=== PATIENT | female | born 1990 | race Caucasian/White ===

== ENCOUNTER 2016-12-22 06:17 | Outpatient (CLI) | payer OTHER ==
[2016-12-22 06:41] LABS: APPEARANCE,URINE SLIGHTLY-CLOUDY; BILIRUBIN,URINE NEGATIVE (NEGATIVE); GLUCOSE, URINE NEGATIVE (NEGATIVE); KETONES,URINE NEGATIVE (NEGATIVE); LEUKOCYTE ESTERASE,URINE NEGATIVE (NEGATIVE); NITRITE,URINE NEGATIVE (NEGATIVE); PROTEIN,URINE NEGATIVE (NEGATIVE); URINE SPECIFIC GRAVITY 1.008; UROBILINOGEN,URINE NEGATIVE mg/dL (<2.0)
[2016-12-22 06:57] LABS: URINE BARBITURATES SCREEN NEGATIVE; URINE METHADONE SCREEN NEGATIVE; URINE OPIATES LOW NEGATIVE; URINE PHENCYCLIDINE SCREEN NEGATIVE
--- NOTE | 2016-12-22 08:00 | L&D Flow Sheet ---
LD Flowsheet Datetime Report Generated by CPN: 12/22/2016 08:00 Datetime: 12/22/2016 07:11 Communication Communication: RN at Bedside (Monalisa Calvert, RN) Communication Comments: Report given to A Lomas, RN . Care relinquished at this time. (Monalisa Calvert, RN) Datetime: 12/22/2016 07:05 NBP Sys/Jasmin/Mean (mmHg): 127 (QS system process) : 96 (QS system process) : 107 (QS system process) Pulse: 106 (QS system process) LaborFlag: Antepartum (QS system process) Datetime: 12/22/2016 07:00 Vital Signs Stage of : Antepartum (Monalisa Calvert, RN) Uterine Activity Monitor Mode: External; Palpation (Monalisa Calvert, RN) Frequency (min): 1.5-5.5 (Monalisa Calvert, RN) Quality: Moderate (Monalisa Calvert, RN) Duration (sec): 60-90 (Monalisa Calvert, RN) Pattern: Normal: <= 5 Contractions in 10 Minutes (Monalisa Calvert, RN) Resting Tone (Palpate): Relaxed (Monalisa Calvert, RN) Assessment A Monitor Mode: External US (Monalisa Calvert, RN) FHR Baseline Rate : 135 (Monalisa Calvert, RN) FHR Baseline Changes: No Baseline Change (Monalisa Calvert, RN) Variability: Moderate 6-25 bpm (Monalisa Calvert, RN) Accelerations: 10X10 (Monalisa Calvert, RN) Decelerations: None (Monalisa Calvert, RN) Communication Communication: RN at Bedside; RN Reviewed Strip (Monalisa Calvert, RN) Datetime: 12/22/2016 06:37 Vaginal Exam Dilatation (cm): 3.0 (Monalisa Calvert, RN) Effacement (%): 100 (Monalisa Calvert, RN) Station: 0 (Monalisa Calvert, RN) Exam by: B Calvert, RN (Monalisa Calvert, RN) Vaginal Bleeding: Normal Show (Monalisa Calvert, RN) Cervix, Consistency: Soft (Monalisa Calvert, RN) Cervix, Position: Anterior (Monalisa Calvert, RN) Datetime: 12/22/2016 06:34 Frequency (min): per patient between 3-5 minutes (Monalisa Calvert, RN) Pain Pain Scale: 1 (Monalisa Calvert, RN) Pain Presence: Intermittent (Monalisa Calvert, RN) Pain Type: Contraction (Monalisa Calvert, RN) Pain Location: Abdomen; Back (Monalisa Calvert, RN) Pain Relief Measures: Comfort Measures (Monalisa Calvert, RN) Pain Coping: Breathing Through Contractions (Monalisa Calvert, RN) Vaginal Bleeding: None (Monalisa Calvert, RN) Maternal Assessment Level of Consciousness: Fully Conscious (Monalisa Calvert, RN) DTR's/Clonus: DTRs 2+; No Clonus (Monalisa Calvert, RN) Headache: Denies (Monalisa Calvert, RN) Breath Sounds, Left: Clear and Equal (Monalisa Calvert, RN) Breath Sounds, Right: Clear and Equal (Monalisa Calvert, RN) Nausea/Vomiting: Denies (Monalisa Calvert, RN) RUQ Epigastric Pain: Denies (Monalisa Calvert, RN) LaborFlag: Antepartum (QS system process) Datetime: 12/22/2016 06:32 NBP Sys/Jasmin/Mean (mmHg): 127 (QS system process) : 90 (QS system process) : 104 (QS system process) Pulse: 105 (QS system process) LaborFlag: Antepartum (QS system process) Datetime: 12/22/2016 06:31 Patient Care Patient Position/Activity: Left Tilt; Semi-Fowlers (Monalisa Calvert, SOPHIA) Teaching Instructional Method: Verbal; Patient Instructed; Family/Support Person Instructed; Verbalized Understanding (Monalisa Calvert RN) Plan of Care: Plan of Care Discussed (Monalisa Calvert RN) Unit Routine: [place] to Room; Call Gomez; Bed; Unit Personnel (Monalisa Calvert RN)
--- NOTE | 2016-12-22 10:46 | L&D Admission Assessment ---
LD ADM ASMT Datetime Report Generated by CPN: 12/22/2016 10:45 PATIENT ASSESSMENT Assessment Type: Triage (12/22/2016 06:34:Monalisa Calvert, RN) WEIGHT Weight (lb): 156 (12/22/2016 06:34:QS system process) Weight (kg): 70.9 (12/22/2016 06:34:QS system process) BMI: 24.4 (12/22/2016 06:34:QS system process) PAIN Pain Scale: 1 (12/22/2016 06:34:Monalisa Calvert, RN) Pain Presence: Intermittent (12/22/2016 06:34:Monalisa Calvert, RN) Pain Type: Contraction (12/22/2016 06:34:Monalisa Calvert, RN) Pain Location: Abdomen; Back (12/22/2016 06:34:Monalisa Calvert, RN) Pain Related to Contraction: Yes (12/22/2016 06:34:Monalisa Calvert, RN) CONTRACTIONS Frequency (min): 1.5-5.5 (12/22/2016 07:00:Monalisa Calvert, RN) Frequency (min): per patient between 3-5 minutes (12/22/2016 06:34:Monalisa Calvert, RN) Duration (sec): 60-90 (12/22/2016 07:00:Monalisa Calvert, RN) Quality: Moderate (12/22/2016 07:00:Monalisa Calvert, RN) Pattern: Normal: <= 5 Contractions in 10 Minutes (12/22/2016 07:00:Monalisa Calvert, RN) Resting Tone [place]: Relaxed (12/22/2016 07:00:Monalisa Calvert, RN) VAGINAL EXAM Dilatation (cm): 3.0 (12/22/2016 06:37:Monalisa Calvert, RN) Effacement (%): 100 (12/22/2016 06:37:Monalisa Calvert, RN) Station: 0 (12/22/2016 06:37:Monalisa Calvert, RN) NEURO Level of Consciousness: Fully Conscious (12/22/2016 06:34:Monalisa Calvert, RN) DTR's/Clonus: DTRs 2+; No Clonus (12/22/2016 06:34:Monalisa Calvert, RN) Headache: Denies (12/22/2016 06:34:Monalisa Calvert, RN) Dizziness: No (12/22/2016 06:34:Monalisa Calvert, RN) Blurred Vision: No (12/22/2016 06:34:Monalisa Calvert, RN) Extremity Numbness/Tingling : None (12/22/2016 06:34:Monalisa Calvert, RN) Extremity Movement: Full Range of Motion (12/22/2016 06:34:Monalisa Calvert, RN) CARDIOVASCULAR Heart Rhythm: Regular (12/22/2016 06:34:Monalisa Calvert, RN) Nailbeds: [place] (12/22/2016 06:34:Monalisa Calvert, RN) Capillary Refill: Less than 3 Seconds (12/22/2016 06:34:Monalisa Calvert, RN) Lower Extremities Edema: None (12/22/2016 06:34:Monalisa Calvert, RN) Lower Extremities Edema Degree: None (12/22/2016 06:34:Monalisa Calvert, RN) Upper Extremities Edema: None (12/22/2016 06:34:Monalisa Calvert, RN) Upper Extremities Edema Degree: None (12/22/2016 06:34:Monalisa Calvert, RN) Facial Edema: None (12/22/2016 06:34:Monalias Calvert, RN) Amauri's Sign Left Leg: Negative (12/22/2016 06:34:Monalisa Calvert, RN) Amauri's Sign Right Leg: Negative (12/22/2016 06:34:Monalisa Calvert, RN) DVT RISK ASSESSMENT DVT Risk Age: Age less than 41 years (12/22/2016 06:34:Monalisa Calvert, RN) DVT Risk Surgery: None Applicable (12/22/2016 06:34:Monalisa Calvert, RN) DVT Risk Other: Women Only- or (<1 month) (12/22/2016 06:34:Monalisa Calvert, RN) RESPIRATORY Respiratory Effort: Unlabored; Regular Rhythm; Equal Expansion (12/22/2016 06:34:Monalisa Calvert, RN) Breath Sounds, Left: Clear and Equal (12/22/2016 06:34:Monalisa Calvert, RN) Breath Sounds, Right: Clear and Equal (12/22/2016 06:34:Monalisa Calvert, RN) Cough Productivity: None (12/22/2016 06:34:Monalisa Calvert, RN) GASTROINTESTINAL Nausea/Vomiting: Denies (12/22/2016 06:34:Monalisa Calvert, RN) Bowel Sounds: Normoactive; All Quadrants (12/22/2016 06:34:Monalisa Calvert, RN) RUQ Epigastric Pain: Denies (12/22/2016 06:34:Monalisa Calvert, RN) Bowel Patterns: Soft, Formed Stool (12/22/2016 06:34:Monalisa Calvert, RN) Hemorrhoids: None (12/22/2016 06:34:Monalisa Calvert, RN) Diet Type: Regular diet (12/22/2016 06:34:Monalisa Calvert, RN) Last Meal: 12/21/2016 22:00 (12/22/2016 06:34:Monalisa Calvert, RN) GENITOURINARY Bladder: Nondistended (12/22/2016 06:34:Monalisa Calvert, RN) Frequency of Urination: No (12/22/2016 06:34:Monalisa Calvert, RN) Urination Burning: No (12/22/2016 06:34:Monalisa Calvert, RN) CVA Tenderness: No (12/22/2016 06:34:Monalisa Calvert, RN) Vaginal Bleeding: Normal Show (12/22/2016 06:34:Monalisa Calvert, RN) Vaginal Discharge Amount: None (12/22/2016 06:34:Monalisa Calvert, RN) Vaginal Discharge Color: N/A (12/22/2016 06:34:Monalisa Calvert, RN) INTEGUMENTARY Skin Color: Normal for Race (12/22/2016 06:34:Monalisa Calvert RN) Skin Temperature: Warm (12/22/2016 06:34:Monalisa Calvert RN) Skin Moisture: Dry (12/22/2016 06:34:Monalisa Calvert RN) Surgical Scars: none (12/22/2016 06:34:Monalisa Calvert RN) Body Piercings/Tattoos: piercings- belly button tattoos- x4 (12/22/2016 06:34:Monalisa Calvert RN) HARSHAL SKIN ASSESSMENT Harshal Scale Sensory Perception: No Impairment- Responds to verbal commands. Has no sensory deficit which would limit ability to feel or voice pain or discomfort (12/22/2016 06:34:Monalisa Calvert RN) Harshal Scale Moisture: Rarely Moist- Skin is usually dry. Linen only requires changing at routine intervals (12/22/2016 06:34:Monalisa Calvert RN) Harshal Scale Activity: Walks Frequently- Walks outside the room at least twice a day and inside room at least every 2 hours during the day. (12/22/2016 06:34:Monalisa Calvert RN) Harshal Scale Mobility: No Limitations- Makes major and frequent changes in position without assistance (12/22/2016 06:34:Monalisa Calvert RN) Harshal Scale Nutrition: Excellent- Eats most of every meal. Never refuses a meal. Usually eats a total of 4 or more servings of meat and dairy products. Occasionally eats between meals. Does not require supplementation (12/22/2016 06:34:Monalisa Calvert RN) Harshal Scale Friction and Shear: No Apparent Problem- Moves in bed and in chair independently and has sufficient muscle strength to lift up completely during move. Maintains good position in bed or chair at all times (12/22/2016 06:34:Monalisa Calvert RN) Harshal Scale Total: 23 (12/22/2016 06:34:QS system process) Harshal Scale Risk: No Risk of Pressure Ulcer Noted at this Time (12/22/2016 06:34:QS system process) SUPPORT Family Support: Significant Other supportive, at bedside frequently (12/22/2016 06:34:Monalisa Calvert RN) Emotional State: Calm/Relaxed (12/22/2016 06:34:Monalisa Calvert RN) SAFETY Call Gomez Within Reach: Yes (12/22/2016 06:34:Monalisa Calvert RN) Side Rails Up: Yes (12/22/2016 06:34:oMnalisa Calvert RN) Bed Wheels Locked: Yes (12/22/2016 06:34:Monalisa Calvert RN) Arm Bands Present: Yes (12/22/2016 06:34:Monalisa Calvert RN) Isolation: [place] (12/22/2016 06:34:Monalisa Calvert RN) FALL SCREEN Fall Risk History of Falling: (0) No (12/22/2016 06:34:Monalisa Calvert RN) Fall Risk Secondary Diagnosis: (0) No (12/22/2016 06:34:Monalisa Calvert RN) Fall Risk Ambulatory Aid: (0) None/Bedrest/Wheelchair/Nurse Assist (12/22/2016 06:34:Monalisa Calvert RN) Fall Risk IV Therapy: (0) No (12/22/2016 06:34:Monalisa Calvert RN) Fall Risk Gait: (0) Normal/Bedrest/Immobile (12/22/2016 06:34:Monalisa Calvert RN) Fall Risk Mental Status: (0) Oriented to Own Ability (12/22/2016 06:34:Monalisa Calvert RN) Fall Risk Score: 0 (12/22/2016 06:34:QS system process) Fall Risk Score Definition: No Risk: No action required (12/22/2016 06:34:QS system process) RECENT TRAVEL/INFECTIOUS DISEASE Recent Exp Communicable Disease: No (12/22/2016 06:34:Monalisa Calvert RN) Cough or Fever: No (12/22/2016 06:34:Monalisa Calvert RN) Foreign Travel Past 10 Days: No (12/22/2016 06:34:Monalisa Calvert RN) Open Wounds or Sores: No (12/22/2016 06:34:Monalisa Calvert RN) Prior Antibiotic Resistance Tx: No (12/22/2016 06:34:Monalisa Calvert RN) Cultures Obtained: Not Applicable (12/22/2016 06:34:Monalisa Calvert RN) Isolation Initiated: No (12/22/2016 06:34:Monalisa Calvert RN) Pt/Family Education: Handwashing Hygiene (12/22/2016 06:34:Monalisa Calvert RN) BABY A FHR Baseline Rate (bpm) Baby A: 135 (12/22/2016 07:00:Monalisa Calvert RN) Variability Baby A: Moderate 6-25 bpm (12/22/2016 07:00:Monalisa Calvert RN) Accelerations Baby A: 10X10 (12/22/2016 07:00:Monalisa Calvert RN) Decelerations Baby A: None (12/22/2016 07:00:Monalisa Calvert RN)
--- NOTE | 2016-12-22 10:46 | L&D Discharge Summary ---
OB Discharge Summary Datetime Report Generated by CPN: 12/22/2016 10:45 DISCHARGE DIAGNOSIS Diagnosis/Symptoms: False Labor Diagnoses/Symptoms Other: Patient transferred to [facility] for pre-term labor at 26.5 weeks. Gestation: 37.5 Number of Babies in Womb: 1 Parity: 0 DIET/ACTIVITY/RESTRICTIONS Diet: Regular Activity: Normal Activity Activity Restrictions: No Sexual Activity TEACHING/INSTRUCTIONS/REFERRALS Instructions Given To: Patient Instructions Understood: Patient Verbalized Understanding; Support Person Verbalized Understanding Referrals: None Educational Materials- Other: Kick Counts DISCHARGE INFORMATION Discharged AMA: No Discharge Date/Time: 12/22/2016 08:24 Discharged To: Home Discharge Provider Name: Dr. Randall Accompanied By: FOB Discharge Method: Ambulatory Condition: Stable FOLLOW UP INFORMATION Follow Up With: Other-Annotate Follow Up On: As Scheduled Follow Up Phone Number: Other-Annotate Comments: F/U with MFM
--- NOTE | 2016-12-22 10:46 | Antepartum Discharge Summary ---
Antepartum DC Datetime Report Generated by CPN: 12/22/2016 10:45 DIET/ACTIVITY/RESTRICTIONS Diet: Regular (12/22/2016 08:31:Shereen Lomas RN) Activity: Normal Activity (12/22/2016 08:31:Shereen Lomas RN) TEACHING/INSTRUCTIONS/REFERRALS Instructions Understood: Patient Verbalized Understanding; Support Person Verbalized Understanding (12/22/2016 08:31:Shereen Lomas RN) Referrals: None (12/22/2016 08:31:Shereen Lomas RN) Educational Materials- Other: Kick Counts (12/22/2016 08:31:Shereen Lomas RN) DISCHARGE INFORMATION Discharged AMA: No (12/22/2016 08:31:Shereen Lomas RN) Discharge Date/Time: 12/22/2016 08:24 (12/22/2016 08:31:Shereen Lomas RN) Discharged To: Home (12/22/2016 08:31:Shereen Lomas RN) Discharge Provider Name: Dr. Randall (12/22/2016 08:31:Shereen Lomas RN) Accompanied By: FOB (12/22/2016 08:31:Shereen Lomas RN) Discharge Method: Ambulatory (12/22/2016 08:31:Shereen Lomas RN) Condition: Stable (12/22/2016 08:31:Shereen Lomas RN) FOLLOW UP INFORMATION Follow Up With: Other-Annotate (12/22/2016 08:31:Shereen Lomas RN) Follow Up On: As Scheduled (12/22/2016 08:31:Shereen Lomas RN) Follow Up Phone Number: Other-Annotate (12/22/2016 08:31:Shereen Lomas RN) Comments: F/U with M (12/22/2016 08:31:Shereen Lomas RN)
--- NOTE | 2016-12-22 10:46 | L&D Flow Sheet ---
LD Flowsheet Datetime Report Generated by CPN: 12/22/2016 10:45 Datetime: 12/22/2016 08:24 Communication Comments: Pt ambulated off floor in stable condition (Shereen Lomas, RN) Datetime: 12/22/2016 08:10 Exam by: A. Lomas RN (Shereen Lomas, RN) Vaginal Exam Comments: unchanged (Shereen Lomas, RN) Datetime: 12/22/2016 07:30 Communication Comments: D/C order received per Dr Randall if pt cervical exam doesn't change after one hour of walking (Shereen Lomas, RN) Datetime: 12/22/2016 07:15 Communication Comments: Monitors removed for patient to walk for one hour (Shereen Lomas, RN) Datetime: 12/22/2016 07:11 Communication Communication: RN at Bedside (Monalisa Calvert, RN) Communication Comments: Report given to A Lomas, RN . Care relinquished at this time. (Monalisa Calvert, RN) Datetime: 12/22/2016 07:05 NBP Sys/Jasmin/Mean (mmHg): 127 (QS system process) : 96 (QS system process) : 107 (QS system process) Pulse: 106 (QS system process) LaborFlag: Antepartum (QS system process) Datetime: 12/22/2016 07:00 Vital Signs Stage of : Antepartum (Monalisa Calvert, RN) Uterine Activity Monitor Mode: External; Palpation (Monalisa Calvert, RN) Frequency (min): 1.5-5.5 (Monalisa Calvert, RN) Quality: Moderate (Monalisa Calvert, RN) Duration (sec): 60-90 (Monalisa Calvert, RN) Pattern: Normal: <= 5 Contractions in 10 Minutes (Monalisa Calvert, RN) Resting Tone (Palpate): Relaxed (Monalisa Calvert, RN) Assessment A Monitor Mode: External US (Monalisa Calvert, RN) FHR Baseline Rate : 135 (Monalisa Calvert, RN) FHR Baseline Changes: No Baseline Change (Monalisa Calvert, RN) Variability: Moderate 6-25 bpm (Monalisa Calvert, RN) Accelerations: 10X10 (Monalisa Calvert, RN) Decelerations: None (Monalisa Calvert, RN) Communication Communication: RN at Bedside; RN Reviewed Strip (Monalisa Calvert, RN) Datetime: 12/22/2016 06:37 Vaginal Exam Dilatation (cm): 3.0 (Monalisa Calvert, RN) Effacement (%): 100 (Monalisa Calvert, RN) Station: 0 (Monalisa Calvert, RN) Exam by: B Calvert, RN (Monalisa Calvert, RN) Vaginal Bleeding: Normal Show (Monalisa Calvert, RN) Cervix, Consistency: Soft (Monalisa Calvert, RN) Cervix, Position: Anterior (Monalisa Calvert, RN) Datetime: 12/22/2016 06:34 Frequency (min): per patient between 3-5 minutes (Monalisa Calvert, RN) Pain Pain Scale: 1 (Monalisa Calvert, RN) Pain Presence: Intermittent (Monalisa Calvert, RN) Pain Type: Contraction (Monalisa Calvert, RN) Pain Location: Abdomen; Back (Monalisa Calvert, RN) Pain Relief Measures: Comfort Measures (Monalisa Calvert, RN) Pain Coping: Breathing Through Contractions (Monalisa Calvert, RN) Vaginal Bleeding: None (Monalisa Calvert, RN) Maternal Assessment Level of Consciousness: Fully Conscious (Monalisa Calvert, RN) DTR's/Clonus: DTRs 2+; No Clonus (Monalisa Calvert, RN) Headache: Denies (Monalisa Calvert, RN) Breath Sounds, Left: Clear and Equal (Monalisa Calvert, RN) Breath Sounds, Right: Clear and Equal (Monalisa Calvert, RN) Nausea/Vomiting: Denies (Monalisa Calvert, RN) RUQ Epigastric Pain: Denies (Monalisa Calvert, RN) LaborFlag: Antepartum (QS system process) Datetime: 12/22/2016 06:32 NBP Sys/Jasmin/Mean (mmHg): 127 (QS system process) : 90 (QS system process) : 104 (QS system process) Pulse: 105 (QS system process) LaborFlag: Antepartum (QS system process) Datetime: 12/22/2016 06:31 Patient Care Patient Position/Activity: Left Tilt; Semi-Fowlers (Monalisa Calvert, RN) Teaching Instructional Method: Verbal; Patient Instructed; Family/Support Person Instructed; Verbalized Understanding (Monalisa Calvert RN) Plan of Care: Plan of Care Discussed (Monalisa Calvert RN) Unit Routine: [place] to Room; Call Gomez; Bed; Unit Personnel (Monalisa Calvert RN)
--- NOTE | 2016-12-22 10:46 | L&D General Admission ---
General Admit Datetime Report Generated by CPN: 12/22/2016 10:45 INFORMATION Patient Age: 26 (10/04/2016 23:52:QS system process) EDC: 01/06/2017 00:00 (10/05/2016 00:13:Constance Mary RN) : 1 (10/05/2016 00:13:Constance Mary RN) Para: 0 (12/22/2016 08:31:Shereen Lomas RN) Para: 0 (10/31/2016 19:18:Lois Simms RN) Para: 0 (10/05/2016 05:29:Constance Mary RN) Para: 0 (10/05/2016 00:13:Constance Mary RN) Term: 0 (10/05/2016 00:13:Khadijah Ziegler RN) : 0 (10/05/2016 00:13:Khadijah Ziegler RN) Spontaneous Abortions: 0 (10/05/2016 00:13:Khadijah Ziegler RN) Induced Abortions: 0 (10/05/2016 00:13:Khadijah Ziegler RN) Livin (10/05/2016 00:13:Khadijah Ziegler RN) Cesareans: 0 (10/05/2016 00:13:Khadijah Ziegler RN) VBACs: 0 (10/05/2016 00:13:Khadijah Ziegelr RN) Ectopic: 0 (10/05/2016 00:13:Khadijah Ziegler RN) Multiple Births: 0 (10/05/2016 00:13:Khadijah Ziegler RN) Baby, Number in Womb: 1 (12/22/2016 08:31:Shereen Lomas RN) Baby, Number in Womb: 1 (10/31/2016 19:18:Lois Simms RN) Baby, Number in Womb: 1 (10/05/2016 05:29:Constance Mary RN) Baby, Number in Womb: 1 (10/05/2016 00:13:Khadijah Ziegler RN) CARE Primary Manager Enrollment: [facility] (10/05/2016 00:13:Constance Mary RN) Adequate Care: Yes (10/05/2016 00:13:Constance Mary RN) Height (in): 67 (12/22/2016 06:34:QS system process) Height (in): 67 (10/31/2016 13:57:QS system process) Height (in): 67 (10/31/2016 13:56:QS system process) Height (in): 67 (10/05/2016 00:39:QS system process) ALLERGIES Medication Allergy: No (10/05/2016 00:13:Constance Mary RN) Medication Allergies: No Known Allergies (12/22/2016) (12/22/2016 06:33:QS system process) Medication Allergies: No Known Allergies (10/31/2016) (10/31/2016 13:56:QS system process) Medication Allergies: No Known Allergies (10/05/2016) (10/05/2016 00:37:QS system process) Medication Allergies: None (10/05/2016 00:13:Constance Mary RN) Latex Allergy: No Latex Allergies (10/05/2016 00:13:Constance Mary RN) Food Allergies: N/A (10/05/2016 00:13:Constance Mary RN) Environmental Allergies: N/A (10/05/2016 00:13:Constance Mary RN) COMMUNICATION Primary Language: Barbadian (10/05/2016 00:13:Constance Mary RN) Medical Tx Preferred Language: Barbadian (10/05/2016 00:13:Constance Mary RN) Communication Barrier(s): None (10/05/2016 00:13:Constance Mary RN) DEMOGRAPHICS Address: [address] [place] [address] (10/31/2016 13:24:QS system process) Address: [address] [place] [address] (10/05/2016 00:37:QS system process) Address: [address] [place] [address] (10/05/2016 00:07:Constance Mary RN) Address: [address] [place] [address] (10/04/2016 23:52:QS system process) Zipcode: [address] (10/31/2016 13:24:QS system process) Zipcode: [address] (10/05/2016 00:37:QS system process) Zipcode: [address] (10/04/2016 23:52:Constance Mary RN) County: [place] (10/05/2016 00:13:Khadijah Ziegler RN) Home (10/31/2016 13:24:QS system process) Home (10/05/2016 00:37:QS system process) Home (10/04/2016 23:52:Constance Mary RN) N: [id number] (10/04/2016 23:52:QS system process) Next of Kin Name: JUSTIN GODINEZ (10/04/2016 23:52:QS system process) Next of Kin (10/31/2016 13:24:QS system process) Next of Kin (10/05/2016 00:37:QS system process) Next of Kin (10/04/2016 23:52:Constance Mary RN) Next of Kin Relationship: SPO (10/04/2016 23:52:QS system process) Date of : 1990 (10/04/2016 23:52:QS system process) Marital Status: (10/31/2016 13:24:QS system process) Marital Status: Single (10/04/2016 23:52:QS system process) Sex: Female (10/04/2016 23:52:QS system process) Race: (10/04/2016 23:52:QS system process) Ethnicity: Non- or (10/04/2016 23:52:QS system process) Caodaism: Taoist (10/04/2016 23:52:QS system process) FOB Involved: Yes (10/05/2016 00:13:Constance Mary RN) Father of Baby Name: Justin Godinez (10/05/2016 00:13:Constance Mary RN) DRUG AND ALCOHOL USE Alcohol: No (10/05/2016 00:13:Constance Mary RN) Cigarettes: Never Smoker. [id number] (10/05/2016 00:13:Constance Mary RN) Marijuana: No (10/05/2016 00:13:Constance Mary RN) Cocaine: No (10/05/2016 00:13:Constance Mary RN) Other Illicit Drugs: No (10/05/2016 00:13:Constance Mary RN) VACCINE HISTORY Influenza Vaccine: Yes (10/05/2016 00:13:Constance Mary RN) Influenza Date: 09/20/16 (10/05/2016 00:13:Lois Simms RN) Pneumococcal Vaccine: No (10/05/2016 00:13:Constance Mary RN) Tetanus Vaccine: No (10/05/2016 00:13:Constance Mary RN) Tdap Vaccine: Yes (10/05/2016 00:13:Lois Simms RN) Tdap Date: 10/26/16 (10/05/2016 00:13:Lois Simms RN) Hepatitis B Vaccine: Uncertain (10/05/2016 00:13:Constance Mary RN) Development Executive: [facility] (10/05/2016 00:13:Constance Mary RN) Feeding Preference: Breast (10/05/2016 00:13:Constance Mary RN) Benefit of Breast Feed Discussed: Yes (10/05/2016 00:13:Constance Mary RN) Circumcision: N/A (10/05/2016 00:13:Constance Field, RN) Pain Management Plans: Epidural (10/05/2016 00:13:Constance Mary RN) Plans for Labor and Delivery: None (10/05/2016 00:13:Constance Mary RN) Support Person: Justin Godinez (10/05/2016 00:13:Constance Mary RN) Support Person Relationship: (10/05/2016 00:13:Constance Mary RN) Cultural/Spritual Practice: No (10/05/2016 00:13:Constance Mary RN) Spir/Cult Dietary Needs: No (10/05/2016 00:13:Constance Mary RN) LIVING SITUATION/DISCHARGE PLAN Living Arrangements: House (10/05/2016 00:13:Constance Mary RN) Adequate Access to:: Electric; Heat; Refrigeration; Plumbing/Running water; Phone; Transportation (10/05/2016 00:13:Constance Mary RN) WIC Program: No (10/05/2016 00:13:Constance Mary RN) Discharge Band Scroll Saw Operator Person: Justin Godinez (10/05/2016 00:13:Constance Mary RN) Person to Help after Discharge: Justin Godinez (10/05/2016 00:13:Constance Mary RN) Currently Using Commun Resources: No (10/05/2016 00:13:Constance Mary RN) Outside Agency/Kinesiologist: No (10/05/2016 00:13:Constance Mary RN) Car Seat for Discharge: Yes (10/05/2016 00:13:Constance Mary RN) Adoption Requested: No (10/05/2016 00:13:Constance Mary RN) Pt Contact w/infant Post : N/A (10/05/2016 00:13:Constance Mary RN) LABS Blood Type: O Positive (10/05/2016 00:13:Constance Mary RN) Antibody Screen: Negative (10/05/2016 00:13:Constance Mary RN) Rho(G) this : Not Applicable (10/05/2016 00:13:Khadijah Ziegler RN) Gonorrhea: Negative (10/05/2016 00:13:Constance Mary RN) Chlamydia: Negative (10/05/2016 00:13:Constance Mary RN) RPR/VDRL: Nonreactive (10/05/2016 00:13:Constance Mary RN) HIV Exposure Test: Negative (10/05/2016 00:13:Khadijah Ziegler RN) Hepatitis B: Negative (10/05/2016 00:13:Khadijah Ziegler RN) Rubella: Immune (10/05/2016 00:13:Kacie Stallings RN) OB/PREVIOUS HISTORY Current Procedures: Ultrasound; NST (10/05/2016 00:13:Monalisa Calvert RN) History of Previous : No (10/05/2016 00:13:Constance Mary RN) History of Gestational Diabetes: No (10/05/2016 00:13:Constance Mary RN) History of PIH: No (10/05/2016 00:13:Constance Mary RN) History of Incompetent Cervix: No (10/05/2016 00:13:Constance Mary RN) History of Placenta Previa/Abrup: No (10/05/2016 00:13:Constance Mary RN) History of Macrosomia: No (10/05/2016 00:13:Constance Mary RN) History of IUGR: No (10/05/2016 00:13:Constance Mary RN) History of Hemorrhage: No (10/05/2016 00:13:Constance Mary RN) History of Loss/Stillborn: No (10/05/2016 00:13:Constance Mary RN) History of : No (10/05/2016 00:13:Constance Mary RN) History of D (Rh) Sensitization: No (10/05/2016 00:13:Constance Mary RN) History Recurrent Loss/Stillborn: No (10/05/2016 00:13:Constance Mary RN) History Depression/PP Depression: No (10/05/2016 00:13:Constance Mary RN) History of Uterine Anomaly/AMADO: No (10/05/2016 00:13:Constance Mary RN) History of Infertility: No (10/05/2016 00:13:Constance Mary RN) History of ART Treatment: No (10/05/2016 00:13:Constance Mary RN) History of AMADO: No (10/05/2016 00:13:Constance Mary RN) Comments Obstetrical History: 2016- current (10/05/2016 00:13:Constance Mary RN) MEDICAL HISTORY Med Hx Diabetes: No (10/05/2016 00:13:Constance Mary RN) Med Hx Hypertension: No (10/05/2016 00:13:Constance Mary RN) Med Hx Heart Disease: No (10/05/2016 00:13:Constance Mary RN) Med Hx Autoimmune Disorder: No (10/05/2016 00:13:Constance Mary RN) Med Hx Kidney Disease/UTI: No (10/05/2016 00:13:Constance Mary RN) Med Hx Neurologic/Epilepsy: No (10/05/2016 00:13:Constance Mary RN) Med Hx Psychiatric Disorders: No (10/05/2016 00:13:Constance Mary RN) Med Hx Hepatitis/Liver Disease: No (10/05/2016 00:13:Constance Mary RN) Med Hx Varicosities/Phlebitis: No (10/05/2016 00:13:Constance Mary RN) Med Hx Thyroid Dysfunction: No (10/05/2016 00:13:Constance Mary RN) Med Hx Trauma/Violence: No (10/05/2016 00:13:Constance Mary RN) Med Hx Blood Transfusion: No (10/05/2016 00:13:Constance Mary RN) Med Hx Pulmonary (Asthma,TB): No (10/05/2016 00:13:Constance Mary RN) Med Hx Breast: No (10/05/2016 00:13:Constance Mary RN) Med Hx PLANOGRAPH OPERATOR Surgery: No (10/05/2016 00:13:Constance Mary RN) Med Hx Hospitalization/Surgery: No (10/05/2016 00:13:Constance Mary RN) Med Hx Anesthetic Complications: No (10/05/2016 00:13:Constance Mary RN) Med Hx Abnormal Pap Smear: No (10/05/2016 00:13:Constance Mary RN) Other Medical Diseases: No (10/05/2016 00:13:Constance Mary RN) Med Hx Significant Family Hx: No (10/05/2016 00:13:Constance Mary RN) Details of Med/Surg Hx: Leep - 2014 (10/05/2016 00:13:Constance Mary RN) INFECTIOUS HISTORY Inf Hx Gonorrhea: No (10/05/2016 00:13:Constance Mary RN) Inf Hx Chlamydia: No (10/05/2016 00:13:Constance Mary RN) Inf Hx Syphilis: No (10/05/2016 00:13:Constance Mary RN) Inf Hx HIV/AIDS: No (10/05/2016 00:13:Constance Mary RN) Inf Hx Human Papilloma Virus: No (10/05/2016 00:13:Constance Mary RN) Inf Hx Pt/Partner Genital Herpes: No (10/05/2016 00:13:Constance Mary RN) Inf Hx Tuberculosis/Exposure: No (10/05/2016 00:13:Constance Mary RN) Inf Hx Hepatitis B,C: No (10/05/2016 00:13:Constance Mary RN) Inf Hx Rash or Viral Illness: No (10/05/2016 00:13:Constance Mary RN) GENETIC HISTORY Gen Hx Age >=35 at JOHNY: No (10/05/2016 00:13:Constance Mary RN) Gen Hx Thalassemia: No (10/05/2016 00:13:Constance Mary RN) Gen Hx Congenital Heart Defect: No (10/05/2016 00:13:Constance Mary RN) Gen Hx Neural Tube Defect: No (10/05/2016 00:13:Constance Mary RN) Gen Hx Down's Syndrome: No (10/05/2016 00:13:Constance Mary RN) Gen Hx Tyrone-Sachs: No (10/05/2016 00:13:Constance Mary RN) Gen Hx Tod: No (10/05/2016 00:13:Constance Mary RN) Gen Hx Familial Dysautonomia: No (10/05/2016 00:13:Constance Mary RN) Gen Hx Sickle Cell Disease/Trait: No (10/05/2016 00:13:Constance Mary RN) Gen Hx Hemophilia/Blood Disorder: No (10/05/2016 00:13:Constance Mary RN) Gen Hx Muscular Dystrophy: No (10/05/2016 00:13:Constance Mary RN) Gen Hx Cystic Fibrosis: No (10/05/2016 00:13:Constance Mary RN) Gen Hx Huntingtons Chorea: No (10/05/2016 00:13:Constance Mary RN) Gen Hx Mental Retardation/Autism: No (10/05/2016 00:13:Constance Mary RN) Gen Hx Tested for Fragile X: No (10/05/2016 00:13:Constance Mary RN) Gen Hx Other Inher/Chromosomal: No (10/05/2016 00:13:Constance Mary RN) Gen Hx Maternal Metabolic DO: No (10/05/2016 00:13:Constance Mary RN) Gen Hx Pt Father or FOB Defect: No (10/05/2016 00:13:Constance Mary RN) Gen Hx Other Genetic History: No (10/05/2016 00:13:Constance Mary RN) Gen Hx Drugs/Meds since LMP: No (10/05/2016 00:13:Constance Mary RN)
--- NOTE | 2016-12-22 10:46 | L&D Current Admission ---
Current Admit Datetime Report Generated by CPN: 12/22/2016 10:45 ADMISSION INFORMATION Chief Complaint: Contractions (12/22/2016 06:34:Monalisa Calvert RN) Chief Complaint: Uterine Cramping; Vaginal Bleeding; Back Pain (10/31/2016 13:40:Lois Simms RN) Chief Complaint: Vaginal Bleeding (10/05/2016 00:19:Constance Mary RN)
== END 2016-12-22 08:24 | disposition home or self-care (01) ==
LOC: LC 06:17
PROVIDERS: ATTEND Obstetrics & Gynecology
PROC: 4A1HXCZ Monitoring of Products of Conception, Cardiac Rate, External Approach (ICD-10-PCS; principal; 2016-12-22)
DX: O47.1 False labor at or after 37 completed weeks of gestation (principal); Z3A.37 37 weeks gestation of pregnancy
CPT/HCPCS: 59025; 80307; 81005

== ENCOUNTER 2016-12-27 12:42 | Emergency (ER) | payer OTHER ==
--- NOTE | 2016-12-27 12:59 | ER Document Report ---
ED Medical Screen (RME) - General Stated Complaint: ANKLE SWELLING Notes: 26 yo female 5 days post vaginal delivery c/o right ankle swelling. both ankles swelled since delivery, but right ankle has not gone down. mild pain, feels tingling and numb. no chest pain or shortness of breath. no fever. BP slightly elevated. Delivered at [facility] TRAVEL OUTSIDE OF THE [place] IN LAST 30 DAYS: No - Related Data Allergies/Adverse Reactions: No Known Allergies Allergy (Verified 12/22/16 06:33) Physical Exam - Vital signs Vitals: Temp Pulse Resp BP Pulse Ox 98.2 F 95 16 144/95 H 96 12/27/16 12:51 12/27/16 12:51 12/27/16 12:51 12/27/16 12:51 12/27/16 12:51 Course - Vital Signs Vital signs: Temp Pulse Resp BP Pulse Ox 98.2 F 95 16 144/95 H 96 12/27/16 12:51 12/27/16 12:51 12/27/16 12:51 12/27/16 12:51 12/27/16 12:51
--- NOTE | 2016-12-27 15:21 | XCELERA REPORT ---
[address] [address] Lower Extremity Venous Evaluation Name: JULIA RODRIGUEZ Age: 26 yrs Gender: Female : 1990 Patient Status: Emergency Patient Location: ER Study Date: 12/27/2016 02:05 PM Procedure: Color flow and duplex imaging of the veins of the right lower extremity as well as the left Common Femoral vein. Reason For Study: 5 days post , right ankle swelling Ordering Physician: MANE WRIGHT Performed By: Debi Gomez Right Sided Venous Evaluation Normal vessel filling wall to wall, compression and augmentation as well as Colour flow down to the infrageniculate veins. Left Sided Venous Evaluation The left common femoral vein is fully compressible. Spontaneous and phasic flow is present in the left common femoral vein. Critical Findings Called in to Mane Wright at 1500. Interpretation Summary No duplex evidence of DVT or obstruction in the right lower extremity nor in the left Common Femoral vein. : MANE WRIGHT > Krishan Irizarry
--- NOTE | 2016-12-27 16:13 | ER Document Report ---
ED Extremity Problem, Lower - General Chief Complaint: Ankle Swelling Stated Complaint: ANKLE SWELLING Mode of Arrival: Ambulatory Information source: Patient Notes: 26 y/o F presents to ED c/o right ankle swelling. Pt reports is 5 days , G1, and has had persistent R lower leg/ankle swelling swelling since delivery. States had bilateral lower leg swelling after delivery and left side has resolved but right side has persisted. Denies pain, color changes, or paresthesias. Also denies chest pain, sob, or any systemic symptoms. TRAVEL OUTSIDE OF THE [place] IN LAST 30 DAYS: No - HPI Patient complains to provider of: Swelling Location: Ankle Onset/Duration: Persistent Quality of pain: No pain Severity: Mild Recent injury: No - Related Data Allergies/Adverse Reactions: No Known Allergies Allergy (Verified 12/27/16 12:55) Past Medical History - General Information source: Patient - Social History Smoking Status: Never Smoker Chew tobacco use (# tins/day): No Frequency of alcohol use: None Drug Abuse: None Lives with: Family Family History: Reviewed & Not Pertinent Patient has suicidal ideation: No Patient has homicidal ideation: No - Medical History Medical History: Negative Renal/ Medical History: Denies: Hx Peritoneal Dialysis Surgical Hx: Negative - Immunizations Immunizations up to date: Yes Hx Diphtheria, Pertussis, Tetanus Vaccination: Yes Review of Systems - Review of Systems Constitutional: No symptoms reported EENT: No symptoms reported Cardiovascular: No symptoms reported Respiratory: No symptoms reported Gastrointestinal: No symptoms reported Genitourinary: No symptoms reported Female Genitourinary: No symptoms reported Musculoskeletal: See HPI Skin: No symptoms reported Hematologic/Lymphatic: No symptoms reported Neurological/Psychological: No symptoms reported -: Yes All other systems reviewed and negative Physical Exam - Vital signs Vitals: Temp Pulse Resp BP Pulse Ox 98.2 F 95 16 144/95 H 96 12/27/16 12:51 12/27/16 12:51 12/27/16 12:51 12/27/16 12:51 12/27/16 12:51 Interpretation: Normal - General General appearance: Appears well, Alert In distress: None - HEENT Head: Normocephalic, Atraumatic Eyes: Normal Pupils: PERRL - Respiratory Respiratory status: No respiratory distress Chest status: Nontender Breath sounds: Normal Chest palpation: Normal - Cardiovascular Rhythm: Regular Heart sounds: Normal auscultation Murmur: No Pulses: Normal: Radial, Posterior tibial, Dorsalis pedis Normal capillary refill: Yes - Abdominal Inspection: Normal Distension: No distension Bowel sounds: Normal Tenderness: Nontender Organomegaly: No organomegaly - Back Back: Normal, Nontender - Extremities General upper extremity: Normal inspection, Nontender, Normal color, Normal ROM , Normal strength, Normal temperature. No: Tender, Edema General lower extremity: Normal inspection, Nontender, Edema - Mild +1 edema around right lower extremity/ankle. No tenderness, erythema, warmth, or bruising. No edema or swelling to left lower extremity. Neurovascular function intact., Normal color, Normal ROM, Normal strength, Normal temperature , Normal weight bearing. No: Tender, Amauri's sign - Neurological Neuro grossly intact: Yes Cognition: Normal Orientation: AAOx4 Ethan Coma Scale Eye Opening: Spontaneous Ethan Coma Scale Verbal: Oriented Ethan Coma Scale Motor: Obeys Commands Ethan Coma Scale Total: 15 Speech: Normal Motor strength normal: LUE, RUE, LLE, RLE Sensory: Normal - Psychological Associated symptoms: Normal affect, Normal mood - Skin Skin Temperature: Warm Skin Moisture: Dry Skin Color: Normal Course - Re-evaluation Re-evalutation: 12/27/16 16:30 Patient hemodynamically stable, in no distress, afebrile, and very well- appearing. Lower extremity ultrasound negative for DVT per Dr. Irizarry. Neurovascular function intact no suggestion of emergency, inflammatory, vascular etiology. Discussed at length with patient edema and to monitor for any worsening or systemic signs/symptoms. Patient appears stable for discharge at this time and agrees with home care, follow-up with PCP, ED return precautions. Patient presentation, ED care, findings, and plan discussed with ED physician Dr. Garrison who concurs with evaluation and treatment. - Vital Signs Vital signs: Temp Pulse Resp BP Pulse Ox 98.7 F 92 20 128/90 H 98 12/27/16 16:15 12/27/16 16:15 12/27/16 16:15 12/27/16 16:15 12/27/16 16:15 - Diagnostic Test Radiology reviewed: Image reviewed, Reports reviewed Discharge - Discharge Clinical Impression: Swelling of lower extremity Condition: Stable Disposition: HOME, SELF-CARE Instructions: Post- Edema ([facility]) Additional Instructions: Drink plenty of fluids. Follow-up with your primary care provider tomorrow. Return to the emergency department for any worsening symptoms or concerns. Referrals: Gissel Ashby MD, MD [Primary Care Provider] - Follow up tomorrow
[2016-12-27 16:18] VITALS: BP 128/90
== END 2016-12-27 16:15 | disposition home or self-care (01) ==
LOC: ER 12:42
DX: O90.9 Complication of the puerperium, unspecified (principal); M25.471 Effusion, right ankle
CPT/HCPCS: 93971; 99283

== ENCOUNTER 2018-10-09 19:31 | Emergency (ER) | payer OTHER ==
[2018-10-09 19:55] VITALS: BP 140/92
[2018-10-09] MEDS ORDERED: BUPIVACAINE HCL 0.5 % INJ/PF 30 ML SDV INJ ONE (21:02)
[2018-10-09] MEDS ORDERED: LIDOCAINE 2%/EPINEPHRINE INJ 20 ML VIAL INJ ONE (21:02)
--- NOTE | 2018-10-09 21:07 | ER Document Report ---
ED General - General Chief Complaint: Toothache Stated Complaint: TOOTH PAIN Time Seen by Provider: 10/09/18 20:37 Notes: Patient is a 28-year-old female that presents to the emergency department for chief complaint of right dental pain after wisdom tooth extraction. Patient states that she started having this pain shortly after her procedure this past Sunday. She had all 4 of her wisdom tooth extracted. She is been doing fine on the left side, the right side has been more swollen, and painful. She is been taking Percocet without relief of her symptoms. She did go back to the office on Sunday and Sunday, and they did place feeling in the lower right side , they thought there was a possible dry socket, but her pain persisted so she decided to come to the emergency department to have this evaluated. She denies any any fevers, chills, night sweats, chest pain or shortness of breath. She currently rates the pain as a 10 out of 10, describes as constant and aching. Past Medical History: Denies chronic medical conditions Past Surgical History: [place] tooth extraction Social History: Denies tobacco, alcohol or drug use. Family History: Reviewed and noncontributory for presenting illness Allergies: Reviewed, see documented allergy list. REVIEW OF SYSTEMS: Other than noted above, the 12 point review of systems was reviewed with the patient and were negative, all pertinent findings are included in the HPI. PHYSICAL EXAMINATION: Vital signs reviewed, nursing noted reviewed. GENERAL: Well-appearing, well-nourished and in no acute distress. HEAD: Atraumatic, normocephalic. EYES: Eyes appear normal, extraocular movements intact, sclera anicteric, conjunctiva are normal. ENT: nares patent, oropharynx clear without exudates. Moist mucous membranes. In the oropharynx, the right lower posterior aspect, over the third molar was, is now feeling noted, without evidence of abscess, the upper region where the third molar was extracted on the right, is mainly tender to palpate with tongue blade, but there is no filling noted, no evidence of abscess on my lamination. There is mild facial swelling associated on the right, but no erythema, or abscess present. NECK: Normal range of motion, supple without lymphadenopathy LUNGS: Breath sounds clear to auscultation bilaterally and equal. No wheezes rales or rhonchi. HEART: Regular rate and rhythm without murmurs ABDOMEN: Soft, nontender, normoactive bowel sounds. No rebound, guarding, or rigidity. No masses appreciated. EXTREMITIES: Nontender, good range of motion, no pitting or edema. NEUROLOGICAL: No focal neurological deficits. Moves all extremities spontaneously Motor and sensory grossly intact on exam. PSYCH: Normal mood, normal affect. SKIN: Warm, Dry, normal turgor, no rashes or lesions noted on exposed skin TRAVEL OUTSIDE OF THE [place] IN LAST 30 DAYS: No - Related Data Allergies/Adverse Reactions: No Known Allergies Allergy (Verified 12/27/16 12:55) Past Medical History - Social History Smoking Status: Never Smoker Chew tobacco use (# tins/day): No Frequency of alcohol use: None Drug Abuse: None Family History: Reviewed & Not Pertinent Patient has suicidal ideation: No Patient has homicidal ideation: No Renal/ Medical History: Denies: Hx Peritoneal Dialysis - Immunizations Immunizations up to date: Yes Hx Diphtheria, Pertussis, Tetanus Vaccination: Yes Physical Exam - Vital signs Vitals: Temp Pulse Resp BP Pulse Ox 98.2 F 95 16 140/92 H 97 10/09/18 19:31 10/09/18 19:31 10/09/18 19:31 10/09/18 19:31 10/09/18 19:31 Course - Re-evaluation Re-evalutation: Patient seen and examined vital signs reviewed. Patient was evaluated and treated as appropriate for the patient's presenting symptoms and complaint, with consideration of any critical or life threatening conditions that may be associated with their obtained history and exam as noted above. Patient was treated with Pen-Vee K 500 mg p.o. x1 in the ED, and patient's given both in inferior and superior alveolar nerve block The patient was re-evaluated and was improved, pain had completely resolved Evaluation was most consistent with dental pain, status post wisdom tooth extraction, patient was given a prescription for Pen-Vee K 500 mg, 4 times daily for 5 days, advised to follow-up with her oral maxillofacial surgeon tomorrow, which she has an appointment. Plan of care was discussed with the patient at this point, after careful consideration I feel that that patient can be discharged from the emergency department, the patient was educated treatments and reasons to return to the emergency department based on their presumed diagnosis as noted above, they were advised to followup with a primary care physician in 2-3 days. Patient was agreeable to plan of care. *Note is created using voice recognition software and may contain spelling, syntax or grammatical errors. PROCEDURE: Right inferior alveolar nerve block: Indication dental pain: Using a combination of 0.5% bupivacaine, and 2% lidocaine with epinephrine, the patient was injected in the trigone space, approximately 5 mL's of the solution was injected, patient tolerated well, with good anesthesia of the lower teeth. Right superior alveolar nerve block: Indication dental pain: Using a combination of 0.5% bupivacaine, and 2% lidocaine with epinephrine, the patient was injected, and the posterior aspect of the right upper second molar, a total of 5 mL's of the solution was injected, patient tolerated well, and with good anesthesia of the upper teeth. Pain was resolved after procedures. - Vital Signs Vital signs: Temp Pulse Resp BP Pulse Ox 98.2 F 95 16 140/92 H 97 10/09/18 19:31 10/09/18 19:31 10/09/18 19:31 10/09/18 19:31 10/09/18 19:31 Discharge - Discharge Clinical Impression: Pain, dental Condition: Stable Disposition: HOME, SELF-CARE Instructions: Penicillin V K ([facility]), Toothache ([facility]) Additional Instructions: Please follow-up with your oral surgeon tomorrow, take the penicillin as prescribed, until advised otherwise. Prescriptions: Penicillin V Potassium [Penicillin Vk 500 mg Tablet] 500 mg PO QID #20 tablet Referrals: FERMIN ARBOLEDA PA-C [Primary Care Provider] - Follow up as needed
[2018-10-09] MEDS ORDERED: PENICILLIN V POTASSIUM 500 MG TABLET PO ONE (21:47)
== END 2018-10-09 21:55 | disposition home or self-care (01) ==
LOC: ER 19:31
DX: K08.89 Other specified disorders of teeth and supporting structures (principal); K08.409 Partial loss of teeth, unspecified cause, unspecified class
CPT/HCPCS: 99282; 64400; J3490 ×2

== ENCOUNTER 2020-07-26 19:22 | Emergency (ER) | payer OTHER ==
[2020-07-26] MEDS ORDERED: NORMAL SALINE 1000 ML 1,000 ML IV ONE ×2 (21:01→22:39)
--- NOTE | 2020-07-26 21:06 | ER Document Report ---
ED GI/ - General Mode of Arrival: Ambulatory Information source: Patient TRAVEL OUTSIDE OF THE [place] IN LAST 30 DAYS: No - HPI Patient complains to provider of: Abdominal pain - Generalized Onset: Other - 2 days Timing/Duration: Intermittent Quality of pain: Sharp Severity at maximum: Severe Severity in ED: Moderate Pain Level: 3 Vaginal bleeding (Compared to normal period): None LMP: June 21 Associated symptoms: Diarrhea, Nausea Exacerbated by: Movement, Walking, Food Relieved by: Denies Similar symptoms previously: Yes Recently seen / treated by doctor: No <RACHELLE MARSHALL - Last Filed: 07/27/20 01:08> - HPI Sexual history: Active <NANLISETH Willow - Last Filed: 07/27/20 06:56> - General Chief Complaint: Abdominal Pain Stated Complaint: NAUSEA,DIARRHEA Time Seen by Provider: 07/26/20 20:51 Primary Care Provider: FERMIN ARBOLEDA PA-C [Primary Care Provider] - Follow up as needed Notes: 31-year-old female presented to ED for complaint of diarrhea for the last 2 days. She states it did stop mid afternoon yesterday. She states she is continued to have severe abdominal pain and nausea. She states the nausea is mostly due to the pain. Patient is alert oriented respirations regular nonlabored speaking in full sentences. REVIEW OF SYSTEMS: CONSTITUTIONAL : Denies fever, chills, or sweats. States she had recent illness of diarrhea and abdominal pain EENT: Denies eye, ear, throat, or mouth pain or symptoms. Denies nasal or sinus congestion. CARDIOVASCULAR: Denies chest pain. RESPIRATORY: Denies cough, cold, or chest congestion. Denies shortness of breath, difficulty breathing, or wheezing. GASTROINTESTINAL: Complains of generalized abdominal pain with nausea and diarrhea. She states the diarrhea quit midafternoon yesterday but she had the diarrhea for 2 days. Last bowel movement was last night. GENITOURINARY: Denies difficulty urinating, painful urination, burning, frequency, or blood in urine. FEMALE GENITOURINARY: Denies vaginal bleeding, abnormal or irregular periods. LMP: June 21 ALL OTHER SYSTEMS REVIEWED AND NEGATIVE. VITAL SIGNS: Within normal limits. GENERAL: No acute distress, non-toxic appearance. HEAD: Normal with no signs of head trauma. CHEST: Clear breath sounds bilaterally. No wheezes, rales, or rhonchi. CARDIAC: Regular rate and rhythm. S1 and S2, without murmurs, gallops, or rubs. ABDOMEN: Normal and soft with generalized tenderness to palpation, no masses or pulsatile masses. GASTROINTESTINAL: Bowel sounds hypoactive GENITOURINARY: Due to start her menstrual cycle anytime LYMPATHTIC: No lymphadenopathy noted. MUSCULOSKELETAL: Good range of motion of all major joints. Extremities without clubbing, cyanosis or edema. NEUROLOGICAL: Alert and oriented x 3. No focal sensory or strength deficits. Speech normal. Follows commands appropriately. PSYCHIATRIC: Normal Affect, judgement and mood. SKIN: Normal appearance with no rashes or lesions. (RACHELLE MARSHALL) - Related Data Allergies/Adverse Reactions: No Known Allergies Allergy (Verified 12/27/16 12:55) Past Medical History - General Information source: Patient - Social History Smoking Status: Never Smoker Frequency of alcohol use: None Drug Abuse: None Occupation: [employer] teacher Lives with: Alone Family History: Reviewed & Not Pertinent Patient has suicidal ideation: No Patient has homicidal ideation: No - Past Medical History Cardiac Medical History: Reports: None Pulmonary Medical History: Reports: Hx Asthma EENT Medical History: Reports: None Neurological Medical History: Reports: None Endocrine Medical History: Reports: None Renal/ Medical History: Reports: None Malignancy Medical History: Reports: None GI Medical History: Reports: None Musculoskeletal Medical History: Reports None Skin Medical History: Reports None Psychiatric Medical History: Reports: None Traumatic Medical History: Reports: None Infectious Medical History: Reports: None Surgical Hx: Negative Past Surgical History: Reports: None - Immunizations Immunizations up to date: Yes Hx Diphtheria, Pertussis, Tetanus Vaccination: Yes <RACHELLE MARSHALL - Last Filed: 07/27/20 01:08> Review of Systems - Review of Systems Constitutional: No symptoms reported EENT: No symptoms reported Cardiovascular: No symptoms reported Respiratory: No symptoms reported Gastrointestinal: See HPI, Abdomen distended, Nausea, Vomiting Genitourinary: No symptoms reported Female Genitourinary: No symptoms reported Musculoskeletal: No symptoms reported Skin: No symptoms reported Hematologic/Lymphatic: No symptoms reported Neurological/Psychological: No symptoms reported -: Yes All other systems reviewed and negative <LISETH MONTANA - Last Filed: 07/27/20 06:56> Physical Exam - Vital signs Interpretation: Hypertensive <LISETH MONTANA - Last Filed: 07/27/20 06:56> - Vital signs Vitals: Temp Pulse Resp BP Pulse Ox 99.1 F 87 18 147/95 H 100 07/26/20 20:08 07/26/20 20:08 07/26/20 20:08 07/26/20 20:08 07/26/20 20:08 - Notes Notes: PHYSICAL EXAMINATION: GENERAL: Well-appearing, well-nourished and in no acute distress. But does appear somewhat uncomfortable. HEAD: Atraumatic, normocephalic. EYES: Pupils equal round and reactive to light, extraocular movements intact, conjunctiva are normal. ENT: Nares patent, oropharynx clear without exudates. Moist mucous membranes. NECK: Normal range of motion, supple without lymphadenopathy LUNGS: Breath sounds clear to auscultation bilaterally and equal. No wheezes rales or rhonchi. HEART: Regular rate and rhythm without murmurs ABDOMEN: Examination patient's abdomen shows patient to be slightly distended with some tympany noted in supine position to percussion. Patient has bowel sounds are present all 4 quads although they are moderately decreased throughout. She has diffuse tenderness nonspecific no peritoneal signs are noted at this time. Patient has no flank pain to percussion. Female : deferred Musculoskeletal: Normal range of motion, no pitting or edema. No cyanosis. NEUROLOGICAL: Normal speech, normal gait. Normal sensory, motor exams PSYCH: Normal mood, normal affect. SKIN: Warm, Dry, normal turgor, no rashes or lesions noted. (LISETH MONTANA) Course - Laboratory Result Diagrams: 07/26/20 21:15 07/26/20 21:15 <RACHELLE MARSHALL - Last Filed: 07/27/20 01:08> - Laboratory Result Diagrams: 07/26/20 21:15 07/26/20 21:15 <LISETH MONTANA - Last Filed: 07/27/20 06:56> - Re-evaluation Re-evalutation: 07/26/20 22:[address] suggs with x-ray of abdomen pelvis. Look like she has some very dilated loops of the bowel. Rectal exam completed with care assistant by Yocasta. No rectal stool in the vault or as far as my finger could reach. Dr. suggs recommended IV and oral contrasted CT of the abdomen pelvis. 07/27/20 01:08 Discussed patient's assessment and test with BEAR Turner. He will take over her care and follow-up with the CT IV and oral contrast of abdomen and pelvis. (RACHELLE MARSHALL) 07/27/20 02:38 This migraine physician railway yard assistant I was handed off patient by the late morning APC Amy GUIDO. She informed me that she was waiting on the CT to come back in a couple labs but that her KUB showed a large amount of gas in her colon. She is asked me to interview patient and to follow-up with her after CT is done. CT is done and shows no acute findings. Will place patient on some antispasmodics which will be Bentyl. And have patient take some simethicone. (LISETH MONTANA) - Vital Signs Vital signs: Temp Pulse Resp BP Pulse Ox 97.8 F 60 16 122/82 100 07/27/20 02:20 07/27/20 02:20 07/27/20 02:20 07/27/20 02:20 07/27/20 02:20 - Laboratory Laboratory results interpreted by me: 07/26/20 21:15 Ur Leukocyte Esterase SMALL H Discharge <RACHELLE MARSHALL - Last Filed: 07/27/20 01:08> <LISETH MONTANA - Last Filed: 07/27/20 06:56> - Discharge Clinical Impression: Abdominal pain Qualifiers: Abdominal location: left lower quadrant Qualified Code(s): R10.32 - Left lower quadrant pain Condition: Stable Disposition: HOME, SELF-CARE Instructions: Abdominal Pain ([facility]), Antispasmodics ([facility]), Low-Fat Diet ([facility]) Additional Instructions: Home and rest. Medications prescribed. I am putting you on a couple medications one will work with the spasms and there will work with coating the stomach and getting rid of the gas this present. Highly suggest you follow-up with your primary care provider in the next 3 to 5 days for further intervention and continuation of care. Should you have uncontrolled vomiting or increasing amount of pain does not go away with the medication return to ER for reevaluation. Prescriptions: Dicyclomine HCl [Bentyl 10 mg Capsule] 1 cap PO TID #30 cap Simethicone [Gas Relief] 125 mg PO TID PRN #30 capsule PRN Reason: Forms: Elevated Blood Pressure, Return to Work Referrals: FERMIN ARBOLEDA PA-C [Primary Care Provider] - Follow up as needed
--- NOTE | 2020-07-26 21:34 | RADIOLOGY REPORT (SQ) ---
EXAM DESCRIPTION: XR ABDOMEN SUPINE AND ERECT WITH CHEST (ABD ACUTE SERIES) COMPLETED DATE/TME: 07/26/2020 21:00 CLINICAL HISTORY: 30 years Female ,abdominal pain diarrhea COMPARISON: None. TECHNIQUE: Frontal view chest x-ray and two views of the abdomen. FINDINGS: The cardiomediastinal silhouette appears unremarkable. No consolidating infiltrates or pleural effusions. No free air is identified beneath the hemidiaphragms. No dilated loops of bowel to suggest obstruction. IMPRESSION: No acute plain film abnormality is identified.
[2020-07-26 21:39] LABS: ABSOLUTE BASOPHILS # (AUTO) 0.1 10^3/uL (0.0-0.2); ABSOLUTE EOSINOPHILS # (AUTO) 0.2 10^3/uL (0.0-0.6); ABSOLUTE LYMPHOCYTES (AUTO) 2.6 10^3/uL (0.5-4.7); ABSOLUTE MONOCYTES (AUTO) 0.5 10^3/uL (0.1-1.4); ABSOLUTE NEUT (AUTO) 4.5 10^3/uL (1.7-8.2); BASOPHILS % (AUTO) 0.7 % (0-2); EOSINOPHILS % (AUTO) 3.1 % (0-6); HEMATOCRIT 43.5 % (36.0-47.0); HEMOGLOBIN 14.9 g/dL (12.0-15.5); LYMPHOCYTES % (AUTO) 32.8 % (13-45); MEAN CORPUSCULAR HEMOGLOBIN 30.5 pg (27.0-33.4); MEAN CORPUSCULAR HGB CONC 34.2 g/dL (32.0-36.0); MEAN CORPUSCULAR VOLUME 89 fl (80-97); MONOCYTES % (AUTO) 6.7 % (3-13); PLATELET COUNT 240 10^3/uL (150-450); RED BLOOD COUNT 4.88 10^6/uL (3.72-5.28); RED CELL DISTRIBUTION WIDTH 12.5 % (11.5-14.0); SEGMENTED NEUTROPHILS % (AUTO) 56.7 % (42-78); TOTAL CELLS COUNTED % (AUTO) 100 %; WHITE BLOOD COUNT 7.9 10^3/uL (4.0-10.5)
[2020-07-26 21:45] LABS: AMORPHOUS SEDIMENT,URINE TRACE /HPF; APPEARANCE,URINE CLOUDY; BILIRUBIN,URINE NEGATIVE (NEGATIVE); COLOR,URINE YELLOW; GLUCOSE, URINE NEGATIVE (NEGATIVE); KETONES,URINE NEGATIVE (NEGATIVE); LEUKOCYTE ESTERASE,URINE SMALL (NEGATIVE); NITRITE,URINE NEGATIVE (NEGATIVE); PROTEIN,URINE NEGATIVE (NEGATIVE); URINE SPECIFIC GRAVITY 1.021; UROBILINOGEN,URINE NEGATIVE mg/dL (<2.0)
[2020-07-26 22:00] LABS: ALBUMIN 4.6 g/dL (3.5-5.0); ALKALINE PHOSPHATASE 58 U/L (38-126); ANION GAP 6 (5-19); ASPARTATE AMINO TRANSFERASE 22 U/L (14-36); BILIRUBIN,DIRECT 0.2 mg/dL (0.0-0.4); BILIRUBIN,TOTAL 0.4 mg/dL (0.2-1.3); BLOOD UREA NITROGEN 17 mg/dL (7-20); CALCIUM 9.6 mg/dL (8.4-10.2); CARBON DIOXIDE 29 mmol/L (22-30); CHLORIDE 105 mmol/L (98-107); GLUCOSE 90 mg/dL (75-110); POTASSIUM 3.9 mmol/L (3.6-5.0); TOTAL PROTEIN 7.8 g/dL (6.3-8.2)
--- NOTE | 2020-07-27 01:45 | RADIOLOGY REPORT (SQ) ---
EXAM DESCRIPTION: CT ABDOMEN PELVIS WITH IV CONTRAST COMPLETED DATE/TME: 07/26/2020 22:38 CLINICAL HISTORY: 30 years Female abdominal pain diarrhea. HCG NEG COMPARISON: None. TECHNIQUE: Contiguous axial images obtained through the abdomen and pelvis following IV contrast. Reformatted images obtained. This exam was performed according to our department optimization program which includes automated exposure control, adjustment of the mA and/or kv according to patient size and/or use of iterative reconstruction technique. FINDINGS: The liver appears unremarkable. The spleen and pancreas appear unremarkable. No adrenal masses. The kidneys appear unremarkable. No hydronephrosis. The gallbladder is visualized. No aneurysmal dilatation of the aorta. No bowel obstruction. The appendix is unremarkable. No significant free fluid noted. IMPRESSION: No acute abnormality is identified.
[2020-07-27 02:21] VITALS: BP 122/82
== END 2020-07-27 03:13 | disposition home or self-care (01) ==
LOC: ER 19:22
DX: R10.32 Left lower quadrant pain (principal); R10.84 Generalized abdominal pain; R11.0 Nausea; R19.7 Diarrhea, unspecified; R11.2 Nausea with vomiting, unspecified; R14.0 Abdominal distension (gaseous); J45.909 Unspecified asthma, uncomplicated; Z20.828 Contact with and (suspected) exposure to other viral communicable diseases
CPT/HCPCS: 99285; 96360; 96361; 36415; 87086; 83690; 84703; 85025; 80053; 81001; 74022; 74177; U0003; J7030; C9803; 87635